=== PATIENT | female | born 1995 | race Caucasian/White ===

== ENCOUNTER 2016-10-25 16:18 | Emergency (ER) | payer BC ==
[2016-10-25 17:00] VITALS: BP 133/80
--- NOTE | 2016-10-25 17:21 | UC ---
Respiratory Complaint HPI - History of Current Complaint Chief Complaint: UCRespiratory Stated Complaint: ST,FEVER Time Seen by Provider: 10/25/16 17:03 Hx Obtained From: Patient Hx Last Menstrual Period: does not get - control Onset/Duration: Gradual Onset - has had sinus silverio and URI for a week, today got worse and was coughing more and has green phlegm Severity Initially: Mild Severity Currently: Moderate Character: Cough: Productive - Allergies/Home Medications Home Medications: Home Medications Control 10/25/16 [History] Levothyroxine TAB* [Synthroid 25 MCG TAB*] 25 mcg PO DAILY 10/25/16 [History Confirmed 10/25/16] PMH/Surg Hx/FS Hx/Imm Hx - Surgical History Surgical History: None - Family History Known Family History: Positive: None - Social History Occupation: Employed Full-time Lives: With Family Alcohol Use: Rare Substance Use Type: None Smoking Status (MU): Never Smoked Tobacco Review of Systems Constitutional: Negative Skin: Negative Eyes: Negative ENT: Sore Throat, Nasal Discharge, Sinus Congestion Respiratory: Cough Cardiovascular: Negative Gastrointestinal: Negative Neurological: Negative Psychological: Negative All Other Systems Reviewed And Are Negative: Yes Physical Exam Triage Information Reviewed: Yes Appearance: Well-Appearing, No Pain Distress, Well-Nourished Vital Signs: Initial Vital Signs Temp 97.7 F 10/25/16 16:57 Pulse 74 10/25/16 16:57 Resp 18 10/25/16 16:57 BP 133/80 10/25/16 16:57 Pulse Ox 100 10/25/16 16:57 Vital Signs Reviewed: Yes ENT: Positive: Nasal congestion, Nasal drainage, TMs normal. Negative: Pharyngeal erythema Respiratory: Positive: Lungs clear, Other: - persistent productive, deep cough Cardiovascular Exam: Normal Cardiovascular: Positive: RRR Neurological Exam: Normal Psychological Exam: Normal Skin Exam: Normal Skin: Negative: rashes UC Diagnostic Evaluation - Laboratory O2 Sat by Pulse Oximetry: 100 Respiratory Course/Dx - Differential Dx/Diagnosis Differential Diagnosis/HQI/PQRI: Bronchitis, Lower Resp Infection, Sinusitis Provider Diagnoses: bronchitis Discharge - Discharge Plan Condition: Stable Disposition: HOME Prescriptions: Azithromycin TAB* [Zithromax TAB (Z-MYRA) 250 mg #6 tabs] 2 tab PO .TODAY, THEN 1 DAILY #1 myra Patient Education Materials: Acute Bronchitis (ED) Referrals: Giovanny SINGH,Talha Santana [Primary Care Provider] - Additional Instructions: drink plenty of fluids start zithromax and take as directed use DayCare and NyQuil for symptom relief
== END 2016-10-25 18:13 | disposition home or self-care (01) ==
LOC: UCEAST 16:18
DX: J40 Bronchitis, not specified as acute or chronic (principal); J02.9 Acute pharyngitis, unspecified; R09.81 Nasal congestion
CPT/HCPCS: 99202; G0463

== ENCOUNTER 2016-10-28 11:07 | Emergency (ER) | payer BC ==
[2016-10-28] MEDS ORDERED: Albuterol/Ipratropium NEB.SOL* Albuterol 2.5 MG/Ipratropium 0.5 MG 3 ML INH ONE (12:35)
--- NOTE | 2016-10-28 12:53 | RAD ---
HISTORY: Cough, hemoptysis COMPARISONS: None VIEWS: 4: Frontal dual-energy and lateral views of the chest. FINDINGS: CARDIOMEDIASTINAL SILHOUETTE: The cardiomediastinal silhouette is normal. SHAE: The shae are normal. PLEURA: The costophrenic angles are sharp. No pleural abnormalities are noted. LUNG PARENCHYMA: The lungs are clear. ABDOMEN: The upper abdomen is clear. There is no subphrenic gas. BONES AND SOFT TISSUES: No bone or soft tissue abnormalities are noted. OTHER: None. IMPRESSION: NO ACTIVE CARDIOPULMONARY DISEASE.
[2016-10-28 13:22] VITALS: BP 121/74
--- NOTE | 2016-10-28 15:01 | UC ---
Nagi Rios Benjamin, scribed for Nicole Garcia MD on 10/28/16 at 1238 . Respiratory Complaint HPI - HPI Summary HPI Summary: 21yo female c/o sore throat and productive cough for a week. Pt was seen last Thursday and was rxed with Zpak for her Bronchitis dx. Pt returns today as Zpak didnt help her symptoms at all and her symptoms are getting worse. Pt also states starting to get difficulty breathing due to her cough. Other symptoms include cold sweats, hot flashes, and chills at times. Pt states that she has been coughing up green phlegm with some black spots in it. - History of Current Complaint Chief Complaint: UCRespiratory Stated Complaint: COUGH CHILLS Time Seen by Provider: 10/28/16 12:02 Hx Obtained From: Patient Hx Last Menstrual Period: bcp ?: No Onset/Duration: Gradual Onset, Lasting Weeks - 1 week, Still Present, Worse Since - getting worse Severity Initially: Mild Severity Currently: Mild Pain Intensity: 0 Pain Scale Used: 0-10 Numeric Character: Cough: Productive - green with some black lining Associated Signs And Symptoms: Positive: Dyspnea, Fever, Chills - Allergies/Home Medications Allergies/Adverse Reactions: Allergies Allergy/AdvReac Type Severity Reaction Status Date / Time cillins Allergy Rash Uncoded 10/28/16 12:01 PMH/Surg Hx/FS Hx/Imm Hx Previously Healthy: No - Pt denies any significant PMHx. Respiratory History: Other Other Respiratory History: Denies Asthma - Surgical History Surgical History: None - Family History Known Family History: Positive: None - Social History Occupation: Employed Full-time Lives: With Family Alcohol Use: Rare Substance Use Type: None Smoking Status (MU): Never Smoked Tobacco Review of Systems Constitutional: Other - See HPI Skin: Negative Eyes: Negative ENT: Nasal Discharge, Sinus Congestion Respiratory: Cough Cardiovascular: Negative Gastrointestinal: Negative Genitourinary: Negative Motor: Negative Neurovascular: Negative Musculoskeletal: Negative Neurological: Negative Psychological: Negative All Other Systems Reviewed And Are Negative: Yes Physical Exam Triage Information Reviewed: Yes Appearance: Well-Appearing, No Pain Distress, Obese Vital Signs: Initial Vital Signs Temp 98.6 F 10/28/16 12:03 Pulse 104 10/28/16 12:03 Resp 20 10/28/16 12:03 BP 123/80 10/28/16 12:03 Pulse Ox 99 10/28/16 12:03 Vital Signs Reviewed: Yes Eye Exam: Normal ENT: Positive: Pharyngeal erythema - uvula midline, no sores noted, TM dull Neck exam: Normal Neck: Positive: Supple, Nontender, No Lymphadenopathy Respiratory: Positive: Chest non-tender, No accessory muscle use, Rhonchi - bialteral scattered rhonchi, Wheezing - expiratory wheezing at bilateral bases of the lungs. Cardiovascular Exam: Normal Cardiovascular: Positive: RRR - heart rate 100's, regular., No Murmur, Pulses Normal, Brisk Capillary Refill Abdomen Description: Positive: Nontender, No Organomegaly, Soft Bowel Sounds: Positive: Present Musculoskeletal Exam: Normal Musculoskeletal: Positive: Strength Intact Neurological Exam: Normal - grossly normal. Nonfocal. Neurological: Positive: Muscle Tone Normal Psychological Exam: Normal - conversing easily and appropriately. Psychological: Positive: Age Appropriate Behavior Skin Exam: Normal Skin: Negative: rashes UC Diagnostic Evaluation - Laboratory O2 Sat by Pulse Oximetry: 99 - Radiology Xray Interpretation: No Acute Changes - CXR: NAD Radiology Interpretation Completed By: Radiologist Respiratory Course/Dx - Course Course Of Treatment: Reviewed pts medication and allergy lists. Blood pressure noted. Recommended breathing treatment to the pt. Reviewed CXR and reviewed CXR report. Encouraged f/u pcp within one week. Sooner for worse or new problems in the meantime. Will switch to cipro (from azithromycin), d/w pt. ( although viral is a consideration). Better s/p duoneb tx. Rx albuterol. Rx diflucan in case of vag yeast infection. Work note until (today is Thursday). Questions answered to the best of my ability. - Differential Dx/Diagnosis Provider Diagnoses: Subacute bronchitis. wheezing / bronchospasm Discharge - Discharge Plan Condition: Stable Disposition: HOME Prescriptions: Albuterol HFA INHALER* [Ventolin HFA Inhaler*] 1 - 2 puff INH Q4H PRN #1 mdi PRN Reason: Wheezing Ciprofloxacin TAB* [Cipro 500 MG TAB*] 500 mg PO BID #14 tab Fluconazole [Diflucan 150 MG (NF)] 150 mg PO DAILY #2 tab Patient Education Materials: Acute Bronchitis (ED), Bronchospasm (ED) Forms: *Work Release Referrals: Giovanny SINGH,Talha Santana [Primary Care Provider] - Additional Instructions: Please follow up with your primary care provider in 1 week if possible. Seek medical attention for worse or new problems in the meantime. Blood work today. The documentation as recorded by the Nagi brewer Benjamin accurately reflects the service I personally performed and the decisions made by me, Nicole Garcia MD.
[2016-10-28 18:25] LABS: Hematocrit 37 % (35-47); Hemoglobin 12.5 g/dl (12.0-16.0); Mean Corpuscular HGB Conc 34 g/dl (31-36); Mean Corpuscular Hemoglobin 29 pg (27-31); Mean Corpuscular Volume 87 fL (80-97); Mean Platelet Volume 9 um3 (7.4-10.4); Red Cell Distribution Width 12 % (10.5-15); White Blood Count 9.8 10^3/ul (3.5-10.8)
[2016-10-28 20:01] LABS: Erythrocyte Sed Rate 48 mm/Hr (0-14)
== END 2016-10-28 13:43 | disposition home or self-care (01) ==
LOC: UCEAST 11:07
DX: J20.9 Acute bronchitis, unspecified (principal); Z88.0 Allergy status to penicillin
CPT/HCPCS: 36415; 71020; 85025; 85652; 99212; A9270-GY; G0463